=== PATIENT | female | born 1955 | race Caucasian/White ===

== ENCOUNTER → 2016-08-10 | Outpatient (CLI) | payer OTHER ==
[~2016-08-10] MED LIST: GADOBUTROL 10mMol/10ml INJECTION IV ONE; NORMAL SALINE 50 ML IV ONE; SALINE FLUSH 10ml SYRINGE ONE
--- NOTE | 2016-08-10 15:08 | DI ---
Indication: Follow-up cystic lesions within the liver seen on prior lumbar spine MRI Procedure: MRI ABDOMEN W/WO CONTRAST: Encounter: Subsequent Comparison: Lumbar spine MRI 12/18/2015 Technique: Multiplanar MultiPulse MR images of the abdomen were obtained before and after administration of 10 mL Gadavist intravenous contrast. Findings: The visualized lung bases appear clear with no focal airspace consolidation or pleural effusions identified. Redemonstration of innumerable cystic lesions throughout the liver which appear homogeneously T2 hyperintense/simple without mural/nodular enhancement or other discrete enhancing hepatic mass identified. The gallbladder is distended and contains several stones. No definite wall thickening or pericholecystic fluid appreciated. No biliary ductal dilatation identified. The pancreas appears homogeneous in signal intensity and enhancement without mass identified. The spleen is normal in size and signal intensity. The adrenal glands appear normal. The kidneys enhance symmetrically and appear normal. The abdominal aorta is normal in course and caliber. The stomach is minimally distended and appears grossly normal. Visualized bowel loops are normal in caliber without evidence of obstruction. No abdominal free fluid or focal fluid collections identified. No abnormality of the visualized spine or soft tissues of the abdominal wall. Impression: 1. Innumerable simple/benign appearing cystic lesions throughout the liver without abnormal postcontrast enhancement. Findings are suspected to represent isolated polycystic liver disease. 2. Cholelithiasis without evidence of acute cholecystitis. .
== END ==
LOC: IMA 09:03
DX: K76.89 Other specified diseases of liver (principal); K80.20 Calculus of gallbladder without cholecystitis without obstruction
CPT/HCPCS: 74183; A9585; J7050